=== PATIENT | female | born 1965 | race Caucasian/White ===

== ENCOUNTER → 2018-03-26 | Outpatient (CLI) | payer OTHER | END | disposition home or self-care (01) | LOC: RAD 07:51 | DX: M19.042 Primary osteoarthritis, left hand (principal) ==

== ENCOUNTER → 2018-09-19 | Outpatient (CLI) | payer OTHER | END | disposition home or self-care (01) | LOC: RAD 11:07 | DX: M25.512 Pain in left shoulder (principal) ==

== ENCOUNTER → 2018-10-27 | Outpatient (CLI) | payer OTHER | END | disposition home or self-care (01) | LOC: RAD 09:06 | DX: M19.042 Primary osteoarthritis, left hand (principal) ==

== ENCOUNTER → 2019-03-30 | Outpatient (CLI) | payer OTHER | END | disposition home or self-care (01) | LOC: US 06:09 | DX: K76.0 Fatty (change of) liver, not elsewhere classified (principal) ==

== ENCOUNTER → 2020-01-25 | Outpatient (CLI) | payer OTHER | END | disposition home or self-care (01) | LOC: CT 00:24 | DX: K76.0 Fatty (change of) liver, not elsewhere classified (principal); D73.89 Other diseases of spleen; Z90.49 Acquired absence of other specified parts of digestive tract ==